=== PATIENT | female | born 1980 | race African-American/Black ===

== ENCOUNTER 2023-10-22 18:19 | Emergency (ER) | payer MEDICAID, OTHER ==
[~2023-10-22] VITALS: Ht 165.1 cm; Wt 88.4 kg
[2023-10-22] MEDS: predniSONE 20 MG TAB PO ONE (20:12)
[2023-10-22] MEDS: IPRATROPIUM BROM 0.5 MG/2.5ML INH SOL NEB ONE (20:41)
[2023-10-22] MEDS: ALBUTEROL SULF 2.5 MG/0.5ML(0.5%) NEB SOLN NEB ONE (20:41)
[2023-10-22] MEDS ORDERED: ALBU1.258 IN (20:57)
[2023-10-22] MEDS ORDERED: ALBU108A5 IN (20:57)
[2023-10-22] MEDS ORDERED: PRED20TA2 PO (20:57)
[2023-10-22 21:50] VITALS: BP 113/77; PULSE 78; RESP 18; O2SAT 97
== END 2023-10-22 21:55 | disposition home or self-care (01) ==
LOC: EDBD 18:19 → ER 18:19
DX: J45.901 Unspecified asthma with (acute) exacerbation (principal)
CPT/HCPCS: 94640; 99283; J7512; J7644